=== PATIENT | female | born 1980 | race Caucasian/White ===

== ENCOUNTER 2020-05-28 15:31 | Emergency (ER) | payer SELFPAY ==
[2020-05-28 15:54] VITALS: BP 122/82; PULSE 77; RESP 18; TEMP 36.2; O2SAT 97; BMI 28.3
[2020-05-28 18:25] VITALS: BP 130/84; PULSE 65; RESP 16; TEMP 36.6; O2SAT 99
[2020-05-28 20:04] VITALS: BP 130/87; PULSE 77; RESP 16; TEMP 36.6; O2SAT 99
--- NOTE | 2020-05-28 21:22 | ED_ITS ---
HPI - Abdominal Pain General: Chief Complaint: Abdominal Pain Stated Complaint: lower abdominal pain Time Seen by Provider: 05/28/20 21:22 History of Present Illness: HPI narrative: Patient comes in today for concerns of pain in the lower abdomen after having a transvaginal ultrasound done earlier in the week. 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 Patient was referred for the ultrasound after an abnormal exam noting a polyp to the cervix. Ultrasound noted fibroids. Patient had contacted the office today due to discomfort during intercourse. Patient was referred to the emergency room for evaluation. Patient denies any bleeding or significant vaginal discharge. Patient just reports lower abdominal discomfort. Patient appears well. Patient appears in mild to moderate pain. MD elicited complaint: abdominal pain Review of Systems General: Reports: 10 or more systems reviewed and unremarkable except in HPI and below : Reports: dyspareunia Physical Exam Const: COMMON NORMALS: no acute distress and patient oriented x3 GENERAL APPEARANCE: cooperative HENMT: COMMON NORMALS: normocephalic and Normal external nose present HEAD & SCALP: normal to inspection and normocephalic NOSE: Normal external nose present Eye: GENERAL EYE: appearance normal, both eyes and all related structures Neck/C-Spine: COMMON NORMALS: full ROM Chest: COMMONS NORMALS: normal inspection of the chest Resp: COMMON NORMALS: normal respiratory effort EFFORT & INSPECTION: Yes able to speak in complete sentences Cardio: COMMON NORMALS: regular rate and regular rhythm RATE: regular rate RHYTHM: regular rhythm GI: PALPATION: Yes Tenderness to palpation present (GI) (lower abd pain) : COMMON NORMALS: Yes normal external appearance, Yes normal appearance of the vagina and Yes normal appearance of the cervix Back/Pelvis: COMMON NORMALS: thoracic and lumbar spine normal to inspection Extremity: COMMON NORMALS: normal to inspection Neuro: COMMON NORMALS: patient oriented x3 and moves all extremities Psych: COMMON NORMALS: mental status grossly normal and cooperative Skin: COMMON NORMALS: no rashes or lesions noted GENERAL SKIN EXAM: no rashes or lesions noted Course Vital Signs: Vital signs: Vital Signs Temperature 97.9 F 05/28/20 20:04 Pulse Rate 77 05/28/20 20:04 Respiratory Rate 18 05/28/20 23:56 Blood Pressure 130/87 05/28/20 20:04 Pulse Oximetry 99 05/28/20 20:04 MDM - Abdominal Pain MDM Narrative: Medical decision making narrative: Patient comes in for pelvic pain. On exam patient appears well. Abdomen soft with some tenderness in suprapubic area. Pelvic exam was normal. Respirations were even lungs were clear to auscultation. Vital signs are normal. Differential diagnosis includes but not limited to bacterial vaginosis, uterine fibroids, ovarian cyst. Patient had a transvaginal ultrasound done and thought that there was something ruptured due to increased pain in her pelvis area. CT scan of the abdomen and pelvis noted no sign of rupture but did note an ovarian cyst on the right and a uterine fibroid. Laboratory values were unremarkable. Patient did have some clue cells on her wet prep. Will treat for bacterial vaginosis tried reassured patient that there was no sign of significant injury due to the transvaginal ultrasound. Patient reported understanding agreed to plan. Lab Data: Labs: Lab Results 05/28/20 05/28/20 05/28/20 Range/Units 21:25 23:00 23:00 WBC 9.3 (4.0-10.0) 10^3/ uL RBC 4.48 (4.1-5.3) 10^6/u L Hgb 12.3 (11.5-15.3) g/dL Hct 39.8 (37.0-47.0) % MCV 88.8 (81-99) fL MCH 27.5 L (28.0-34.0) pg MCHC 30.9 (30.0-36.0) g/dL RDW 14.1 (12.1-15.1) % Plt Count 265 (130-400) 10^3/c mm MPV 10.2 (7.4-10.4) fL Neut % (Auto) 50.8 % Lymph % (Auto) 37.6 % [place] % (Auto) 4.6 % Eos % (Auto) 5.9 % Baso % (Auto) 0.8 % Neut # (Auto) 4.69 (1.8-7.7) 10^3/u L Lymph # (Auto) 3.5 (0.8-4.8) 10^3/u L [place] # (Auto) 0.4 (0.2-0.9) 10^3/u L Eos # (Auto) 0.6 (0.0-0.8) 10^3/u L Baso # (Auto) 0.1 (0.0-0.1) 10^3/u L Nucleated RBC % (a uto) 0 % Nucleated RBCs # 0.0 /100WBC Sodium 139 (136-145) mmol/L Potassium 3.8 (3.5-5.1) mmol/L Chloride 106 (98-107) mmol/L Carbon Dioxide 24 (22-29) mmol/L Anion Gap 12.8 (5-19) BUN 11 (6-20) mg/dL Creatinine 0.6 (0.5-0.9) mg/dL GFR Calculation 111.3 (90-130) mL/min Glucose 100 (65-115) mg/dL Calculated Osmolal ity 287 (285-295) mOsm/k g Calcium 9.0 (8.5-10.5) mg/dL Urine Color Yellow (Yellow) Urine Appearance Sl cloudy A (CLEAR) Urine pH 7 (5-7) Ur Specific Gravit y 1.010 (1.005-1.030) Urine Protein Neg (Negative) Urine Glucose (UA) Norm (Normal) Urine Ketones Negative (Negative) Urine Blood Neg (Negative) Urine Nitrate Negative (Negative) Urine Bilirubin Neg (Negative) Urine Urobilinogen Norm (Negative) mg/dL Ur Leukocyte Carmelita ase Negative (Negative) Urine RBC None (0-2) /hpf Urine WBC None (0-5) /hpf Ur Squamous Epith Cells 10-15 H (0-5) /hpf Amorphous Sediment 4+ /hpf Urine Bacteria Trace (NONE) /hpf Discharge Plan Discharge Patient Disposition: Home Clinical Impression: Bacterial vaginosis, Submucous uterine fibroid Ovarian cyst Qualifiers: Laterality: right Qualified Code(s): N83.201 - Unspecified ovarian cyst, right side Condition: Stable Prescriptions: New hydrocodone-acetaminophen 5-325 mg tablet 1 tab PO Q8H PRN (Reason: pain (scale score 7-10)) Qty: 6 RF: 0 metronidazole 500 mg tablet 500 mg PO BID 7 Days Qty: 14 RF: 0 Discharge Orders: Discharge Order (Routine); Ordered 05/28/20 Ordered By: Lam Nelson Referrals: Magali Gomez FNP [Primary Care Provider] - Discharge Diet: Usual diet Discharge Activity: Increase activity as tolerated Patient Instructions: Bacterial Vaginosis (ED) Activity Restrictions/Additional Instructions: Follow-up with ob-second vp hr assessment. Take medications as directed. Drink plenty of fluids. Follow-up with primary care for further treatment. Return to the emergency department for high fever, bleeding greater than one pad an hour or new concerns. Coding Level of Care Code ED Cement Finisher Apprentice for Fernando Taylor Exam Comprehensive
[2020-05-28 21:32] LABS: Add Urine Microscopic? YES; Bilirubin Urine Neg (Negative); Blood Urine Neg (Negative); Glucose Urine UA Norm (Normal); Ketones Urine Negative (Negative); Leukocyte Esterase Urine Negative (Negative); Nitrate Urine Negative (Negative); Protein Urine Neg (Negative); Urine Color Yellow (Yellow); Urobilinogen Urine Norm (Negative); pH Urine 7 (5-7)
[2020-05-28] MEDS: HYDROcodone-acetaminophen 7.5-325 mg Tablet 1 TAB PO (21:38)
[2020-05-28 21:44] LABS: Add Urine Culture? No; Amorphous Sediment Urine 4+ /hpf; Bacteria Urine TRACE /hpf
[2020-05-28 22:00] VITALS: RESP 18
--- NOTE | 2020-05-28 22:22 | CTR_ITS ---
PROCEDURE INFORMATION: Exam: CT Abdomen And Pelvis With Contrast Exam date and time: 05/28/2020 11:00 PM Age: 39 years old Clinical indication: Abdominal pain; Generalized; Prior surgery; Surgery type: Gb, btl; Additional info: Lower abd pain TECHNIQUE: Imaging protocol: Computed tomography of the abdomen and pelvis with intravenous contrast. Radiation optimization: All CT scans at this facility use at least one of these dose optimization techniques: automated exposure control; mA and/or kV adjustment per patient size (includes targeted exams where dose is matched to clinical indication); or iterative reconstruction. Contrast material: OMNI 300; Contrast volume: 95 ml; Contrast route: INTRAVENOUS (IV); COMPARISON: No relevant prior studies available. RADIATION DOSE METRICS: Total DLP (mGy-cm): 1033.07 FINDINGS: Liver: Unremarkable.No mass. Gallbladder and bile ducts: There has been a cholecystectomy. There is no common bile duct dilation. Pancreas: Normal. No ductal dilation. Spleen: Normal. No splenomegaly. Adrenals: Normal. No mass. Kidneys and ureters: There is no evidence of hydronephrosis. There are multiple renal hypodensities that cannot be further characterized on the current examination. There is a 1.6 cm upper pole simple cyst in the left kidney. No follow-up is necessary. Stomach and bowel: There is no evidence of intestinal perforation or obstruction. There is no evidence of colitis/diverticulitis. Appendix: A normal appendix is identified. Intraperitoneal space: Unremarkable. No free air. No significant fluid collection. Vasculature: Unremarkable.No abdominal aortic aneurysm. Lymph nodes: Unremarkable.No enlarged lymph nodes. Urinary bladder: Unremarkable as visualized. Reproductive: The left ovary is unremarkable. There is thickening of the endometrial stripe or fluid in the endometrial cavity measuring 1.9 cm in thickness. In the fundal endometrial portion of the uterus, there is an ovoid nodular density that measures about 11 mm in size that may be a small polyp, subserosal fibroid or even a small gestational sac. There is a partially collapsing right ovarian cyst measuring 1.8 cm in greatest dimension. Bones/joints: Unremarkable. No acute fracture. Soft tissues: There is a fat-containing umbilical hernia. CT/CT abdomen pelvis w con* [id number] IMPRESSION: 1. There is thickening of the endometrial stripe or fluid in the endometrial cavity measuring 1.9 cm in thickness. In the fundal endometrial portion of the uterus, there is an ovoid nodular density that measures about 11 mm in size that may be a small polyp, subserosal fibroid or even a small gestational sac. Ultrasound may be helpful for further evaluation. 2. There is a partially collapsing right ovarian cyst measuring 1.8 cm in greatest dimension. COMMENTS: Consistent with the [employer]'s Incidental Findings Committee white paper (J Am Radha Radiol 2018): Any incidental renal lesion less than 1 cm or classified as too small to characterize, or any incidental cystic renal lesion characterized as simple-appearing, is likely benign. No follow-up imaging is recommended for these lesions per consensus recommendations based on imaging criteria. Radiation Dose CTDIVOL = (mGy): DLP = 1033.07 (mGy-cm)
[2020-05-28] MEDS: iohexol 300 mg/mL 100 mL Btl IV (23:10)
[2020-05-28 23:15] LABS: Basophils # 0.1 10^3/uL (0.0-0.1); Basophils % 0.8 %; Eosinophils # 0.6 10^3/uL (0.0-0.8); Eosinophils % 5.9 %; Hematocrit 39.8 % (37.0-47.0); Hemoglobin 12.3 g/dL (11.5-15.3); Lymphocytes # 3.5 10^3/uL (0.8-4.8); Lymphocytes % 37.6 %; Mean Corpuscular HGB Conc 30.9 g/dL (30.0-36.0); Mean Corpuscular Hemoglobin 27.5 pg (28.0-34.0); Mean Corpuscular Volume 88.8 fL (81-99); Mean Platelet Volume 10.2 fL (7.4-10.4); Monocytes # 0.4 10^3/uL (0.2-0.9); Monocytes % 4.6 %; Neutrophils # 4.69 10^3/uL (1.8-7.7); Neutrophils % 50.8 %; Nucleated Red Blood Cells % 0 %; Platelet Count 265 10^3/cmm (130-400); Red Blood Count 4.48 10^6/uL (4.1-5.3); Red Cell Distribution Width 14.1 % (12.1-15.1); White Blood Count 9.3 10^3/uL (4.0-10.0)
[2020-05-28 23:32] LABS: Anion Gap 12.8 (5-19); Blood Urea Nitrogen 11 mg/dL (6-20); Carbon Dioxide 24 mmol/L (22-29); Chloride 106 mmol/L (98-107); Glomerular Filtration Rate 111.3 mL/min (90-130); Glucose 100 mg/dL (65-115); Osmolality Calculated 287 mOsm/kg (285-295); Potassium 3.8 mmol/L (3.5-5.1); Sodium 139 mmol/L (136-145)
[2020-05-28 23:56] VITALS: RESP 18
[2020-05-28 23:57] LABS: HCG, Serum Qual Negative (Negative)
== END 2020-05-29 00:01 | disposition home or self-care (01) ==
PROVIDERS: Emergency Provider Nurse Practitioner Family; PCP Nurse Practitioner Family
DX: N83.201 Unspecified ovarian cyst, right side (principal); N76.0 Acute vaginitis; D25.0 Submucous leiomyoma of uterus
CPT/HCPCS: 12345; 74177; 80048; 81001; 84703; 85025; 87070; 87205; 87210; 87491; 87591; 87661; 99282; 99283; Q9967

== ENCOUNTER 2020-07-31 17:41 | Emergency (ER) | payer SELFPAY ==
[2020-07-31 17:53] VITALS: BP 175/118; PULSE 113; RESP 14; TEMP 36.8; O2SAT 99; BMI 28.1
--- NOTE | 2020-07-31 18:16 | ED_ITS ---
HPI - Female Genitourinary General: Chief complaint: Vaginal Bleeding Stated complaint: vaginal bleeding, lower ab pain Time Seen by Provider: 07/31/20 17:49 Source: patient Mode of arrival: ambulatory Limitations: no limitations History of Present Illness: HPI Narrative: 40-year-old female who states she has had vaginal bleeding that began today. States she coughed and felt like she had was bleeding and checked and she did have 2 clots and has had continuous bleeding since then. She states this has been an ongoing problem but does have polyps and uterine fibroids. She just started progesterone to try to help her bleeding. She had lower abdominal cramping she rates a 5 out of 10. Denies any worsening or improving factors. Associated symptoms: Deny abdominal pain, headache(s) or nausea Review of Systems Const: Denies: fever(s), chills, body aches or change in appetite Eyes: Denies: blurry vision or eye discomfort ENMT: Denies: throat pain or dental pain Card: Denies: chest pain Resp: Denies: dyspnea GI: Denies: abdominal pain, nausea, vomiting or diarrhea : Reports: vaginal bleeding; Denies: dysuria Musc: Denies: neck pain or back pain Skin/Breast: Denies: rash Neuro: Denies: headache(s) Psych: Denies: depression Onel/Lymph: Denies: easy bruising All/Imm: Denies: urticaria Physical Exam Const: COMMON NORMALS: no acute distress, patient oriented x3 and healthy appearing HENMT: COMMON NORMALS: normocephalic and atraumatic HEAD & SCALP: normocephalic and atraumatic Eye: COMMON NORMALS: Equal, round and reactive pupils present and EOMs intact bilaterally PUPIL: Yes Equal, round and reactive pupils present Neck/C-Spine: COMMON NORMALS: full ROM and supple Chest: COMMONS NORMALS: normal inspection of the chest and normal palpation of entire chest wall Resp: COMMON NORMALS: normal respiratory effort, No retractions, No use of accessory muscles and clear to auscultation bilaterally AUSCULTATION: clear to auscultation bilaterally Cardio: COMMON NORMALS: regular rate, regular rhythm and No murmurs present (Cardio) RATE: regular rate RHYTHM: regular rhythm GI: COMMON NORMALS: Normal to inspection, nondistended, normoactive bowel sounds present, Soft to palpation, non-tender and no masses PALPATION: Yes Soft to palpation Extremity: COMMON NORMALS: normal to inspection and full ROM Neuro: COMMON NORMALS: patient oriented x3, moves all extremities and no focal motor deficits Psych: COMMON NORMALS: mental status grossly normal, Normal thought process present and cooperative THOUGHT PROCESS: Normal thought process present Skin: COMMON NORMALS: no rashes or lesions noted and no wounds GENERAL SKIN EXAM: no rashes or lesions noted Course Vital Signs: Vital signs: Vital Signs Temperature 98.2 F 07/31/20 17:53 Pulse Rate 75 07/31/20 19:19 Respiratory Rate 22 H 07/31/20 19:19 Blood Pressure 150/91 07/31/20 19:19 Pulse Oximetry 95 07/31/20 19:19 MDM - Female MDM Narrative: Medical decision making narrative: Most presents here with vaginal bleeding. She has had chronic history of issues with this. Her hemoglobin level here is normal and her blood pressures been stable. She is stable for discharge and is to follow-up with her OB and is to return if worsening. She understands agrees to plan. Her abdominal exam here is benign with no acute tenderness. She has no signs of surgical abdomen. Lab Data: Labs: Lab Results 07/31/20 07/31/20 07/31/20 Range/Units 18:08 18:35 18:35 WBC 9.4 (4.0-10.0) 10^3/ uL RBC 4.70 (4.1-5.3) 10^6/u L Hgb 13.1 (11.5-15.3) g/dL Hct 40.9 (37.0-47.0) % MCV 87.0 (81-99) fL MCH 27.9 L (28.0-34.0) pg MCHC 32.0 (30.0-36.0) g/dL RDW 15.6 H (12.1-15.1) % Plt Count 269 (130-400) 10^3/c mm MPV 10.2 (7.4-10.4) fL Neut % (Auto) 52.9 % Lymph % (Auto) 36.6 % [place] % (Auto) 6.3 % Eos % (Auto) 3.4 % Baso % (Auto) 0.6 % Neut # (Auto) 4.94 (1.8-7.7) 10^3/u L Lymph # (Auto) 3.4 (0.8-4.8) 10^3/u L [place] # (Auto) 0.6 (0.2-0.9) 10^3/u L Eos # (Auto) 0.3 (0.0-0.8) 10^3/u L Baso # (Auto) 0.1 (0.0-0.1) 10^3/u L Nucleated RBC % (a uto) 0 % Nucleated RBCs # 0.0 /100WBC Sodium 140 (136-145) mmol/L Potassium 3.4 L (3.5-5.1) mmol/L Chloride 104 (98-107) mmol/L Carbon Dioxide 23 (22-29) mmol/L Anion Gap 16.4 (5-19) BUN 14 (6-20) mg/dL Creatinine 0.7 (0.5-0.9) mg/dL GFR Calculation 92.7 (90-130) mL/min Glucose 99 (65-115) mg/dL Calculated Osmolal ity 291 (285-295) mOsm/k g Calcium 9.4 (8.5-10.5) mg/dL Total Bilirubin 0.2 (0.15-1.2) mg/dL AST 13 (0-32) U/L ALT 10 (0-33) U/L Alkaline Phosphata se 73 (35-105) IU/L Total Protein 7.6 (6.6-8.7) g/dL Albumin 4.6 (3.5-5.2) g/dL Globulin 3.0 (1.3-4.6) g/dL Lipase 32 (13-60) U/L Ser , Abhay i-Qnt 0.50 mIU/mL Urine Color Yellow (Yellow) Urine Appearance Hazy A (CLEAR) Urine pH 6 (5-7) Ur Specific Gravit y 1.020 (1.005-1.030) Urine Protein Neg (Negative) Urine Glucose (UA) Norm (Normal) Urine Ketones 1+ H (Negative) Urine Blood 3+ H (Negative) Urine Nitrate Negative (Negative) Urine Bilirubin Neg (Negative) Urine Urobilinogen Norm (Negative) mg/dL Ur Leukocyte Carmelita ase Negative (Negative) Urine RBC 80-100 H (0-2) /hpf Urine WBC Rare (0-5) /hpf Ur Squamous Epith Cells 0-4 H (0-5) /hpf Amorphous Sediment Not Reportable Urine Bacteria Trace (NONE) /hpf Urine Mucus 1+ /hpf Discharge Plan Discharge Patient Disposition: Home Clinical Impression: Vaginal bleeding Condition: Stable Prescriptions: No Action Aspir-81 81 mg Tablet,Delayed Release (Dr/Ec) 81 mg PO EVERY OTHER DAY RF: 0 amlodipine 10 mg tablet 10 mg PO DAILY@09 RF: 0 norethindrone (contraceptive) 0.35 mg tablet See Rx Instructions .ROUTE .COMPLEX RF: 0 28 mg iron- 800 mcg Tablet 1 tab PO DAILY@09 RF: 0 Discharge Orders: Discharge ED (Routine); Ordered 07/31/20 Ordered By: Marleny Pfeiffer Referrals: Magali Gomez FNP [Primary Care Provider] - Discharge Diet: Advance as tolerated Discharge Activity: Resume usual activity Patient Instructions: Dysfunctional Uterine Bleeding (ED) Coding Level of Care Code ED Pipe Organ Mechanic for Chg Fwd Exam Comprehensive
[2020-07-31] MEDS: sodium chloride 0.9% 1,000 ML 999 ML IV (18:38)
[2020-07-31] MEDS: ondansetron 2 mg/ML SDV 2 mL 4 MG IVP (18:39)
[2020-07-31 18:42] VITALS: BP 132/91; PULSE 70; RESP 20; O2SAT 99
[2020-07-31 18:45] VITALS: RESP 20; O2SAT 100
[2020-07-31] MEDS: morphine 4 mg/mL SDV 1 mL IVP (18:45)
[2020-07-31 18:46] LABS: Basophils # 0.1 10^3/uL (0.0-0.1); Basophils % 0.6 %; Eosinophils # 0.3 10^3/uL (0.0-0.8); Eosinophils % 3.4 %; Hematocrit 40.9 % (37.0-47.0); Hemoglobin 13.1 g/dL (11.5-15.3); Lymphocytes # 3.4 10^3/uL (0.8-4.8); Lymphocytes % 36.6 %; Mean Corpuscular Hemoglobin 27.9 pg (28.0-34.0); Mean Platelet Volume 10.2 fL (7.4-10.4); Monocytes # 0.6 10^3/uL (0.2-0.9); Monocytes % 6.3 %; Neutrophils # 4.94 10^3/uL (1.8-7.7); Neutrophils % 52.9 %; Nucleated Red Blood Cells % 0 %; Platelet Count 269 10^3/cmm (130-400); Red Cell Distribution Width 15.6 % (12.1-15.1); White Blood Count 9.4 10^3/uL (4.0-10.0)
[2020-07-31 18:47] LABS: Add Urine Microscopic? YES; Bilirubin Urine Neg (Negative); Blood Urine 3+ (Negative); Glucose Urine UA Norm (Normal); Ketones Urine 1+ (Negative); Leukocyte Esterase Urine Negative (Negative); Nitrate Urine Negative (Negative); Protein Urine Neg (Negative); Urine Appearance Hazy (CLEAR); Urine Color Yellow (Yellow); Urobilinogen Urine Norm (Negative); pH Urine 6 (5-7)
[2020-07-31 18:51] LABS: RBC Urine 80-100 /hpf (0-2)
[2020-07-31 18:52] LABS: Add Urine Culture? Yes; Bacteria Urine TRACE /hpf; Mucus Urine 1+ /hpf; Squamous Epithelial Cell Urine 0-4 /hpf (0-5); WBC Urine RARE /hpf (0-5)
[2020-07-31 19:19] VITALS: BP 150/91; PULSE 75; RESP 22; O2SAT 95
[2020-07-31 19:23] LABS: Alanine Aminotransferase 10 U/L (0-33); Albumin Level 4.6 g/dL (3.5-5.2); Alkaline Phosphatase 73 IU/L (35-105); Anion Gap 16.4 (5-19); Aspartate Amino Transferase 13 U/L (0-32); Blood Urea Nitrogen 14 mg/dL (6-20); Calcium 9.4 mg/dL (8.5-10.5); Carbon Dioxide 23 mmol/L (22-29); Chloride 104 mmol/L (98-107); Glomerular Filtration Rate 92.7 mL/min (90-130); Glucose 99 mg/dL (65-115); Lipase 32 U/L (13-60); Osmolality Calculated 291 mOsm/kg (285-295); Potassium 3.4 mmol/L (3.5-5.1); Sodium 140 mmol/L (136-145); Total Bilirubin 0.2 mg/dL (0.15-1.2); Total Protein 7.6 g/dL (6.6-8.7)
[2020-07-31 19:45] VITALS: BP 132/81; PULSE 84; RESP 18; O2SAT 96
== END 2020-07-31 19:40 | disposition home or self-care (01) ==
PROVIDERS: Emergency Provider Emergency Medicine; PCP Nurse Practitioner Family
DX: N93.9 Abnormal uterine and vaginal bleeding, unspecified (principal); Z79.82 Long term (current) use of aspirin
CPT/HCPCS: 12345; 80053; 81001; 83690; 84702; 85025; 87086; 96361; 96374; 96375; 99283; J2270; J2405; J7030